=== PATIENT | male | born 1960 | race Two or more races ===

== ENCOUNTER 2023-03-26 14:54 | Emergency (ER) | payer OTHER ==
[~2023-03-26] VITALS: Ht 160 cm; Wt 81.6 kg
[2023-03-26] MEDS ORDERED: LEVOTHYROXINE25 MCG PO (16:14)
[2023-03-26] MEDS ORDERED: PEPCID AC20 MG PO (18:49)
[2023-03-26] MEDS ORDERED: CIPRO500 MG PO (18:49)
[2023-03-26] MEDS ORDERED: METRONIDAZOLE500 MG PO (18:49)
== END 2023-03-26 20:30 | disposition home or self-care (01) ==
LOC: ER 14:54
DX: K57.32 Diverticulitis of large intestine without perforation or abscess without bleeding (principal); E03.9 Hypothyroidism, unspecified; G47.33 Obstructive sleep apnea (adult) (pediatric); Z98.890 Other specified postprocedural states

== ENCOUNTER 2023-06-08 22:32 | Emergency (ER) | payer OTHER ==
[~2023-06-08] VITALS: Ht 160 cm; Wt 81.6 kg
[~2023-06-08 22:32] MED LIST: CIPRO500 MG PO; LEVOTHYROXINE25 MCG PO; METRONIDAZOLE500 MG PO; PEPCID AC20 MG PO
== END 2023-06-09 02:40 | disposition home or self-care (01) ==
LOC: ER 22:32
PROVIDERS: General Practice
DX: R10.32 Left lower quadrant pain (principal); K57.32 Diverticulitis of large intestine without perforation or abscess without bleeding; R10.9 Unspecified abdominal pain; E03.8 Other specified hypothyroidism
CPT/HCPCS: 36415; 74176; 96365; 96366; 99284; J1885; J2543; J3490; J7030